=== PATIENT | female | born 1940 | race African-American/Black ===

== ENCOUNTER 2017-08-03 15:00 | Emergency (ER) | payer MEDICARE ==
[~2017-08-03] VITALS: Ht 157.5 cm; Wt 55.6 kg
[2017-08-03 15:04] VITALS: BP 218/84
[2017-08-03] MEDS ORDERED: METO-93 PO (16:09)
[2017-08-03] MEDS ORDERED: TRAM50TA2 PO (16:09)
[2017-08-03] MEDS ORDERED: LEVO50TA64 PO (16:09)
[2017-08-03] MEDS ORDERED: HYDR12.58 PO (16:09)
[2017-08-03] MEDS ORDERED: AMLO5TAB4 PO (16:09)
== END 2017-08-03 16:19 | disposition home or self-care (01) ==
LOC: ED 16:12
DX: Z76.0 Encounter for issue of repeat prescription (principal); I10 Essential (primary) hypertension; Z72.89 Other problems related to lifestyle; E03.9 Hypothyroidism, unspecified; Z90.710 Acquired absence of both cervix and uterus
CPT/HCPCS: 93005; 99283

== ENCOUNTER 2017-10-17 13:39 | Emergency (ER) | payer MEDICARE ==
[~2017-10-17] VITALS: Ht 160 cm; Wt 56.1 kg
[~2017-10-17 13:39] MED LIST: AMLO5TAB4 PO; HYDR12.58 PO; LEVO50TA64 PO; METO-93 PO; TRAM50TA2 PO
[2017-10-17 14:58] LABS: BASOPHILS # (AUTO) 0.02 x10^3/uL (0-0.1); BASOPHILS % (AUTO) 0 % (0-1); EOSINOPHILS # (AUTO) 0.01 x10^3/uL (0-0.4); EOSINOPHILS % (AUTO) 0 % (1-7); LYMPHOCYTES # (AUTO) 1.25 x10^3/uL (1-3.4); LYMPHOCYTES % (AUTO) 21 % (22-44); MD NO; MEAN CORPUSCULAR HGB CONC 32.2 g/dL (32.4-35.8); MEAN CORPUSCULAR VOLUME 86.8 fL (80-100); MEAN PLATELET VOLUME 10.3 fL (7.4-10.4); MONOCYTES # (AUTO) 0.44 x10^3/uL (0.2-0.8); MONOCYTES % (AUTO) 7 % (2-9); NEUTROPHILS # (AUTO) 4.24 x10^3/uL (1.8-6.8); NEUTROPHILS % (AUTO) 71 % (42-75); PLATELET COUNT 129 x10^3/uL (130-400); RED BLOOD COUNT 5.12 x10^6/uL (3.82-5.3); RED CELL DISTRIBUTION WIDTH 15.2 % (9.6-15.2)
[2017-10-17 15:08] LABS: ALBUMIN 3.8 g/dL (3.4-5.0); ANION GAP 4 mmol/L (5-15); CALCIUM 9.3 mg/dL (8.5-10.1); CHLORIDE 112 mmol/L (98-107)
[2017-10-17 15:20] LABS: ALANINE AMINOTRANSFERASE 56 U/L (12-78); ALKALINE PHOSPHATASE 112 U/L (45-117); BILIRUBIN,TOTAL 1.4 mg/dL (0.2-1.0); CREATININE 1.11 mg/dL (0.55-1.02); FREE T4 (FREE THYROXINE) 0.87 ng/dL (0.76-1.46); TOTAL PROTEIN 7.1 g/dL (6.4-8.2)
[2017-10-17 15:33] LABS: TROPONIN I < 0.015 ng/mL (0.000-0.045)
[2017-10-17 16:30] VITALS: BP 220/80
== END 2017-10-17 17:08 | disposition left against medical advice (07) ==
LOC: ED 17:05
DX: I10 Essential (primary) hypertension (principal); Z72.89 Other problems related to lifestyle; E03.9 Hypothyroidism, unspecified; Z90.710 Acquired absence of both cervix and uterus
CPT/HCPCS: 36415; 71046; 80053; 84439; 84443; 84484; 85025; 93005; 99285